=== PATIENT | female | born 1965 | race Caucasian/White ===

== ENCOUNTER → 2016-12-23 | Outpatient (CLI) | payer BC ==
--- OUTSIDE RECORDS SUMMARY | 2016-12-23 16:16 | XMS REPORT | Continuity of Care Document ---
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 If you do not see the information that you expected, contact Release of Information in the Health Information Management department at [phone] for further assistance in locating additional records.[facility] Active Allergies and Adverse Reactions No Known Allergies Current Medications Prescription Sig. Disp. Refills Start End Date Status Date oxycodone/acetaminophen Take 1-2 Tabs by mouth 30 0 03/05/20 Active (PERCOCET) 5/325 mg Every 4-6 Hours as needed 09 tablet for Pain. senna/docusate Take 1 Tab by mouth Twice 30 0 03/05/20 Active (SENOKOT-S) 8.6/50 mg Daily. 09 tablet Active Problems Problem Noted Date Hydrocephalus 03/05/2009 Social History Tobacco Use Types Packs/Day Years Used Date Never Smoker Alcohol Use Drinks/Week oz/Week Comments Yes Occasional Last Filed Vital Signs Vital Sign Reading Time Taken Blood Pressure 120/66 03/05/2009 10:31 AM CDT Pulse 63 03/05/2009 10:31 AM CDT Temperature 36.8 C (98.2 F) 03/05/2009 10:31 AM CDT Respiratory Rate - - Height 1.6 m (5' 3") 03/02/2009 5:00 PM CDT Weight 70.308 kg (155 lb) 03/02/2009 5:00 PM CDT Body Mass Index 27.46 03/02/2009 5:00 PM CDT Oxygen Saturation 100% 03/05/2009 10:31 AM CDT Plan of Care Health Maintenance Due Date Last Done Comments Physical (Comprehensive) 1974 Exam Pertussis Vaccine 1978 Tetanus Vaccine 01/19/1984 Cervical Cancer Screening 01/19/1988 Breast Cancer Screening 2007 Influenza Vaccine 06/09/2016 Results from Last 3 Months Not on file
--- NOTE | 2016-12-23 17:34 | Diagnostic Imaging Report ---
PROCEDURE: MRI lumbar spine. TECHNIQUE: Multiplanar, multisequence MRI of the lumbar spine was performed without contrast. INDICATION: Right-sided lower back pain. COMPARISON STUDY: MRI lumbar spine from December 2010. FINDINGS: The exam demonstrates no fracture or subluxation. Normal signal intensity is seen within the vertebral bodies and spinal cord. The conus medullaris ends at the top of L2. The L3-L4 level demonstrates stable mild facet arthropathy. The disc appears normal. No stenosis is present. The L4-L5 level demonstrates stable mild facet arthropathy. Minimal disc bulge is present. There is no stenosis. The L5-S1 level demonstrates a moderate-sized broad-based disc bulge with posterior radial tear. The disc bulge may be a little smaller than previously. There is some flattening of the anterior aspect of the thecal sac. IMPRESSION: Mild degenerative changes of L3-L4 and L4-L5 without stenosis. The L5-S1 level demonstrates a moderate-sized broad-based disc bulge which has slightly decreased. There is an associated posterior radial tear. Dictated by: Dictated on workstation # [id number]
== END ==
LOC: RAD 16:13
DX: M54.5 Low back pain (principal)
CPT/HCPCS: 72148

== ENCOUNTER → 2018-03-10 | Outpatient (CLI) | payer BC ==
[~2018-03-10] MED LIST: LEVO100T7 PO
--- NOTE | 2018-03-10 11:01 | Diagnostic Imaging Report ---
PROCEDURE: MRI lumbar spine. TECHNIQUE: Multiplanar, multisequence MRI of the lumbar spine was performed without contrast. INDICATION: Chronic back pain and bilateral leg pain. Comparison made with prior examination from 12/23/2016. FINDINGS: There is very slight anterolisthesis of L4 on L5. The vertebral body heights are well maintained. There is no spondylolysis. Conus medullaris is seen at L1 and is normal in appearance. The T12-L1 disc, L1-L2 disc, and L2-L3 discs are all normal in height, signal intensity, and morphology. At L3-L4, there is slight loss of disc height and signal intensity with some minimal annular bulging. There is slight effacement of the ventral thecal sac and minimal neuroforaminal encroachment. At L4-L5, there is loss of disc height and signal intensity with broad-based annular bulging. There is also some facet disease and thickening of the ligamentum flavum. There is moderate central spinal stenosis with slight encroachment upon the lateral recess bilaterally. There is moderate bilateral neuroforaminal encroachment. At L5-S1, there is some minimal annular bulging with slight effacement of the ventral thecal sac. The abdominal aorta is nonaneurysmal. The kidneys are unremarkable. IMPRESSION: Mild lower lumbar spondylosis and multilevel degenerative disc disease as detailed above. Dictated by: Dictated on workstation # [id number]
== END ==
LOC: RAD 09:50
DX: M48.061 Spinal stenosis, lumbar region without neurogenic claudication (principal); M51.36 Other intervertebral disc degeneration, lumbar region; M99.73 Connective tissue and disc stenosis of intervertebral foramina of lumbar region; M25.9 Joint disorder, unspecified; E03.9 Hypothyroidism, unspecified; I10 Essential (primary) hypertension; Z78.0 Asymptomatic menopausal state; F41.8 Other specified anxiety disorders
CPT/HCPCS: 72148

== ENCOUNTER → 2018-03-16 | Outpatient (CLI) | payer BC ==
[~2018-03-16] MED LIST changes: +GADOBUTROL 7.5 MMOL/7.5 ML (GADAVIST) VIAL IV ONE
[2018-03-16 15:44] LABS: BUN/CREATININE RATIO 41; CREATININE SERUM 0.68 MG/DL (0.60-1.30); GFR ESTIMATED > 60
--- NOTE | 2018-03-16 17:22 | Diagnostic Imaging Report ---
PROCEDURE: MR imaging cervical spine with and without contrast. TECHNIQUE: Multiplanar and multisequence MRI of the cervical spine was performed with and without contrast. INDICATION: Painful limitations in range of motion of the neck. I have no priors. FINDINGS: Cervical body heights are maintained. The alignment is anatomic. Marrow signal intensity appeared unremarkable. There was no paravertebral mass, hemorrhage or fluid collection. With IV contrast administration, there was no abnormal or suspicious cervical enhancement. No evidence for fracture, infection or neoplasm. No ligamentous injury. The craniocervical relationship appeared normal. The C1-C2, C2-C3 and C3-C4 as well as C4-C5 levels and discs were normal. C5-C6: Disc material and endplate osteophytes posteriorly flatten and efface the ventral thecal sac with a moderate degree of spinal canal stenosis and no substantial foraminal narrowing. C6-C7: Large midline broad-based disc protrusion indents the ventral thecal sac as well as indents the ventral cord surface and results in severe canal stenosis. Just posterior to the C6 vertebral body, there is a small area of left paramedian intrasubstance cord signal abnormality elevated on T2 and likely reflective of a mild focal area of myelomalacia. No cord swelling or hemorrhage. Cord below the narrowed disc space level appeared unremarkable. C7-T1: This level and disc appeared normal. The visualized upper thoracic levels normal. IMPRESSION: 1. Severe central canal stenosis owing to large broad-based disc protrusion at C6-C7 with effacement and indentation of the ventral cord and likely some slight left paramedian cord myelomalacia just above. 2. More mild spondylosis and stenosis at the C5-C6 level noted. Remaining levels normal. Dictated by: Dictated on workstation # [id number]
== END ==
LOC: RAD 15:07
DX: M48.02 Spinal stenosis, cervical region (principal); M50.223 Other cervical disc displacement at C6-C7 level; M47.812 Spondylosis without myelopathy or radiculopathy, cervical region
CPT/HCPCS: 36415; 72156; 82565; 84520

== ENCOUNTER 2018-03-28 10:15 | Outpatient (CLI) | payer BC ==
[~2018-03-28] VITALS: Ht 160 cm; Wt 77.1 kg
[2018-03-28] MEDS ORDERED: LEVO100T7 PO (10:21)
== END 2018-03-28 10:26 | disposition home or self-care (01) ==
LOC: PREOP 10:15
PROVIDERS: ATTEND Surgery
DX: Z01.818 Encounter for other preprocedural examination (principal)

== ENCOUNTER 2018-04-16 08:56 | Day surgery (SDC) | payer BC ==
--- NOTE | 2018-04-02 12:20 | History & Physicial ---
History of Present Illness History of Present Illness Reason for visit/HPI To undergo screening colonoscopy. Denies any family history of colon cancer Date of Admission 04/16/18 Date Seen by Provider: Apr 02, 2018 Time Seen by Provider: 12:18 I consulted on this patient on 04/02/18 12:18 Attending Physician Levy Oden MD Admitting Physician Doron Calix MD Consult Allergies and Home Medications Allergies Coded Allergies: No Known Drug Allergies (Unverified , 03/16/18) Home Medications Levothyroxine Sodium 100 Mcg Tablet, 100 MCG PO DAILY, (Reported) Patient Home Medication List Home Medication List Reviewed: Yes Past Fzmagvf-Oaenih-Ufzejz Hx Patient Social History Marrital Status: Employed/Student: employed Recent Foreign Travel: No Contact w/other who traveled: No Recent Hopitalizations: No Seasonal Allergies Seasonal Allergies: Yes (AT TIMES) Surgeries Yes Brain Shunt, Eye Surgery, Tubal Ligation Cardiovascular No Neurological Yes Genitourinary No Gastrointestinal No Endocrine History of Endocrine Disorders: Yes Endocrine Disorders: Hypothyroidsim HEENT History of HEENT Disorders: No Cancer No Psychosocial History of Psychiatric Problem: No Constitutional: no symptoms reported EENTM: no symptoms reported Respiratory: no symptoms reported Cardiovascular: no symptoms reported Gastrointestinal: no symptoms reported Genitourinary: no symptoms reported Skin: no symptoms reported Psychiatric/Neurological: No Symptoms Reported Physical Exam Vital Signs Capillary Refill : General Appearance: No Apparent Distress Neck: Normal Inspection Cardiovascular: Regular Rate, Rhythm Gastrointestinal: Non Tender, Soft Rectal: Deferred Extremity: Normal Inspection Neurologic/Psychiatric: Alert, Oriented x3 Skin: Warm/Dry Assessment/Plan Assessment and Plan Lady to undergo screening colonoscopy. Discussed in detail. Admission Diagnosis Admission Status: Other (Outpt Proc) LEVY ODEN MD Apr 02, 2018 12:20 pm
[~2018-04-16] VITALS: Ht 160 cm; Wt 77.1 kg
[~2018-04-16 08:56] MED LIST changes: -GADOBUTROL 7.5 MMOL/7.5 ML (GADAVIST) VIAL IV ONE
[2018-04-16] MEDS ORDERED: NS IV 500 ML 500 ML ONE (09:04)
[2018-04-16] MEDS ORDERED: NS IV 500 ML 500 ML IV PRN ×2 (09:10→11:19)
[2018-04-16 09:39] VITALS: BP 142/78
[2018-04-16] MEDS ORDERED: fentaNYL INJECTION 100 MCG/2 ML AMP ONE ×2 (10:18)
[2018-04-16] MEDS ORDERED: MIDAZOLAM 2 MG/2 ML (VERSED) VIAL ONE ×6 (10:19→10:48)
[2018-04-16] MEDS: fentaNYL INJECTION 100 MCG/2 ML AMP IVP PRN ×4 (10:28→10:47)
[2018-04-16] MEDS: MIDAZOLAM 2 MG/2 ML (VERSED) VIAL IVP PRN ×5 (10:30→10:45)
--- NOTE | 2018-04-16 11:00 | Conscious Sedation/ASA ---
Conscious Sedation Pre-Proced Time Reviewed: 09:55 ASA Class: 2 Airway Mallampati Classification: (naknek appropriate class) I. II. III, IV Lungs Heart ASA score ASA 1: a normal healthy patient ASA 2: a patient with a mild systemic disease (mid diabetes, controlled hypertension, obesity ASA 3: a patient with a severe systemic disease that limits activity (angina , COPD, prior Myocardial infarction) ASA 4: a patient with an incapacitating disease that is a constant threat to life (CHF, renal failure) ASA 5: a moribund patient not expected to survive 24 hrs. (ruptured aneurysm) ASA 6: a declared brain patient whose organs are being harvested. For emergent operations, add the letter E after the classification Grade 1 Sedation Plan: Discussed options with patient/fam Note The patient is an appropriate candidate to undergo the planned procedure, sedation, and anesthesia. The patient immediately re-assessed prior to indication. LEVY ODEN MD Apr 16, 2018 11:00 am
--- NOTE | 2018-04-16 11:02 | Endo Procedure Record ---
Endo Procedure Report Date of Procedure Last Colonoscopy: Yes Apr 16, 2018 Surgeon (s) LEVY ODEN MD Post Procedure/Op Diagnosis Very few sigmoid diverticula Procedure Performed Colonoscopy to cecum Description of Procedure Anesthesia Type: Conscious Sedation Specimen(s) collected/removed None Description of the Procedure Indication for the procedure: This lady came in for screening colonoscopy. Informed consent was obtained after reviewing the procedure in detail. Description of procedure: She was placed in left lateral decubitus position and her vital signs were monitored. Conscious sedation was achieved using Versed and fentanyl. Digital rectal examination was unremarkable. The colonoscope was then introduced into rectum and advanced all the way up to cecum. It was then withdrawn slowly and the mucosa examined in a systematic fashion. Findings: Very few sigmoid diverticula. No polyps were found She tolerated the procedure well and was taken back to the nursing area in a stable condition. Impression: Screening colonoscopy. No polyps. Family history of polyps. Recommend screening in 5 years. LEVY ODEN MD Apr 16, 2018 11:01 am
--- NOTE | 2018-04-16 11:04 | Discharge Inst-Simple/Standard ---
Discharge Inst-Standard Discharge Medications New, Converted or Re-Newed RX: Other Patient Instructions/Follow Up Plan of Care/Instructions/FU: Repeat colonoscopy in 5 years Activity as Tolerated: Yes Discharge Diet: No Restrictions LEVY ODEN MD Apr 16, 2018 11:04 am
[2018-04-16 11:30] VITALS: BP 123/68
[2018-04-16 12:00] VITALS: BP 125/74
[2018-04-16 12:58] VITALS: BP 125/74
== END 2018-04-16 12:30 | disposition home or self-care (01) ==
LOC: ENDO 08:56
PROVIDERS: ATTEND Surgery
DX: Z12.11 Encounter for screening for malignant neoplasm of colon (principal); K57.30 Diverticulosis of large intestine without perforation or abscess without bleeding; Z83.71 Family history of colonic polyps

== ENCOUNTER → 2019-01-29 | Outpatient (CLI) | payer BC ==
--- NOTE | 2019-01-29 14:15 | Diagnostic Imaging Report ---
PROCEDURE: CT abdomen and pelvis without contrast. TECHNIQUE: Multiple contiguous axial images were obtained through the abdomen and pelvis without the use of intravenous contrast. Auto Exposure Controls were utilized during the CT exam to meet ALARA standards for radiation dose reduction. INDICATION: Hematuria. COMPARISON: No prior studies are available for comparison. FINDINGS: Lung bases are clear of acute infiltrates. Calcified granuloma in the left lower lobe is seen. No focal liver mass is identified. The gallbladder is unremarkable. No biliary duct dilatation is seen. Pancreas and spleen are unremarkable. No adrenal mass is detected. No definite renal calculi are detected. No ureteral or bladder calculi are detected. There is no hydronephrosis. Aorta is nonaneurysmal. Small and large bowel loops appear to be nonobstructed. There is moderate stool throughout the colon. There appears to be shunt tubing passing into the abdomen and pelvis. No free fluid or fluid collection is identified. There is no free air. Uterus is unremarkable. No abdominal or pelvic lymphadenopathy is seen. IMPRESSION: No evidence of urinary tract calculi, obstruction or hydronephrosis. No acute feature in the abdomen or pelvis is seen. There is moderate stool noted within the colon. Dictated by: Dictated on workstation # [id number]
== END ==
LOC: RAD 13:15
PROVIDERS: ATTEND Urology
DX: R31.9 Hematuria, unspecified (principal)
CPT/HCPCS: 74176

== ENCOUNTER → 2019-03-05 | Outpatient (CLI) | payer BC ==
--- NOTE | 2019-03-05 10:04 | Diagnostic Imaging Report ---
INDICATION: Dyspepsia. TECHNIQUE: Multiple grayscale sonographic images were obtained of the right upper quadrant of the abdomen. CORRELATION STUDY: None FINDINGS: LIVER: There is uniform echotexture within the visualized portions of the liver. There is normal, hepatopedal direction of flow within the main portal vein. Liver length 13 cm. GALLBLADDER: The gallbladder demonstrates no definitive shadowing gallstones. No abnormal gallbladder wall thickening or pericholecystic fluid. COMMON BILE DUCT: Nondilated at 3 mm. PANCREAS: Visualized portions appearing unremarkable. RIGHT KIDNEY: Measures 11.9 x 5.4 x 4.1 cm. No hydronephrosis. AORTA/IVC: Not well visualized. OTHER: None. IMPRESSION: 1. Negative appearing right upper quadrant abdominal ultrasound. Dictated by: Dictated on workstation # [id number]
== END ==
LOC: RAD 08:20
PROVIDERS: ATTEND Emergency Medicine
DX: E87.70 Fluid overload, unspecified (principal); K30 Functional dyspepsia; R14.0 Abdominal distension (gaseous)
CPT/HCPCS: 36415; 76705; 82232; 82784

== ENCOUNTER → 2019-08-02 | Outpatient (CLI) | payer BC ==
--- NOTE | 2019-08-02 15:42 | Diagnostic Imaging Report ---
EXAMINATION: Cervical spine at 3:16 p.m. INDICATION: Neck pain. AP, lateral, and odontoid views were obtained. FINDINGS: The lateral view shows the vertebral body heights and alignment to be generally within normal limits and similar to the MRI cervical spine exam of 03/16/2018. The intervertebral spaces are fairly well maintained. There is no fracture or acute bony abnormality evident. There is no sign of retropharyngeal edema. The lung apices are clear. The ventriculoperitoneal shunt on the right seen previously is again evident. IMPRESSION: 1. There is no evidence for an acute bony abnormality. 2. The previous MRI exam of 03/16/2018 did show severe central canal stenosis at C6-C7 and mild stenosis at C5-C6. If there is clinical concern that these areas of stenosis have worsened since the prior study, then repeat MRI exam would be recommended. Dictated by: Dictated on workstation # [id number]
--- NOTE | 2019-08-02 17:08 | Diagnostic Imaging Report ---
EXAMINATION: Lumbar spine at 3:18 p.m. INDICATION: Back pain. FINDINGS: The lateral view shows slight anterior translation of L4 with respect to L5 and mild narrowing of the disc space at L4-L5. These findings are similar to the CT abdomen/pelvis exam of 01/29/2019. The alignment of the other vertebral bodies is within normal limits. There is also mild narrowing of the disc space at L5-S1. The other intervertebral spaces are well maintained. There is no fracture or acute bony abnormality identified. There is no sign of a paraspinal mass. The ventriculoperitoneal shunt seen previously is again evident. There is mild symmetrical sclerosis of the sacroiliac joints. IMPRESSION: 1. There is no evidence for an acute bony abnormality. 2. The mild degenerative disc and bony disease at L4-L5 and L5-S1 seen previously does not appear to have progressed. 3. If there is clinical concern regarding spinal stenosis or nerve root encroachment and further imaging is desired, then MRI would be recommended. Dictated by: Dictated on workstation # [id number]
--- NOTE | 2019-08-02 19:31 | Diagnostic Imaging Report ---
EXAMINATION: Magnetic resonance imaging of the right shoulder without contrast. DATE: August 02, 2019. COMPARISON: None. HISTORY: 54-year-old female, right shoulder pain. TECHNIQUE: Magnetic Resonance Imaging sequences were performed of the shoulder without contrast. FINDINGS: ROTATOR CUFF, LIGAMENTS, TENDONS, AND MUSCLES: The supraspinatus, infraspinatus, teres minor, and subscapularis tendons and muscles are intact. There is normal rotator cuff muscle bulk and signal. LONG HEAD OF BICEPS: The biceps labral attachment and long head of the biceps tendon is intact. The long head of the biceps tendon is normally positioned within the bicipital groove. GLENOHUMERAL JOINT: The humeral head is well positioned relative to the glenoid. The labrum is grossly intact. There is no convincing paralabral cyst. There is a questionable tiny paralabral cyst adjacent to the anterior inferior labrum. This also may relate to a vessel. The articular cartilage is grossly intact. There is no joint effusion. ACROMIOCLAVICULAR JOINT: The acromioclavicular joint is normally aligned. The coracoclavicular and coracoacromial ligaments are intact. There are mild acromioclavicular degenerative changes without large undersurface osteophyte. BONE: The bones all have normal configuration. There is no acute fracture, bone contusion or evidence of osteonecrosis. BURSAE AND SOFT TISSUES: The bursae and soft tissue surrounding the shoulder are unremarkable. IMPRESSION: 1. Intact rotator cuff. 2. Mild acromioclavicular degenerative changes without undersurface osteophyte. 3. No discretely identified labral tear. There is a questionable paralabral cyst adjacent to the anterior-inferior labrum which is thought more likely to relate to a prominent vessel. Additional glenohumeral joint assessment is unremarkable. 4. No acute fracture, bone contusion or evidence of osteonecrosis. Dictated by: Dictated on workstation # [id number]
== END ==
LOC: RAD 14:57
PROVIDERS: ATTEND Emergency Medicine
DX: M19.011 Primary osteoarthritis, right shoulder (principal); M48.02 Spinal stenosis, cervical region; M51.37 Other intervertebral disc degeneration, lumbosacral region
CPT/HCPCS: 72040; 72100; 73221

== ENCOUNTER → 2019-09-27 | Outpatient (CLI) | payer BC ==
--- NOTE | 2019-09-27 15:31 | Diagnostic Imaging Report ---
PROCEDURE: MR imaging cervical spine without contrast. TECHNIQUE: Multiplanar, multisequence MR imaging of the cervical spine was performed without contrast. INDICATION: Neck pain and right shoulder pain. COMPARISON: Correlation is made with prior MRI of the cervical spine from 03/16/2018. FINDINGS: Curvature and alignment of the cervical spine is normal. The vertebral body marrow signal is normal. No geographic marrow lesion is detected. Disc heights are fairly well-maintained. There is some generalized desiccation, similar to prior exam. Previously noted area of a left para-midline focal cord signal at C6 level appears similar to prior exam and again is most suggestive of an area of myelomalacia. No other new areas of cord signal abnormality are seen. Craniocervical junction is unremarkable. C2-C3: No central canal or neural foraminal stenosis is identified. C3-C4: No central canal or neural foraminal stenosis is identified. C4-C5: No central canal or neural foraminal stenosis is identified. C5-C6: Broad-based disc/osteophyte complex indents the ventral thecal sac and produces mild narrowing of the canal. There does appear to be some [id number] narrowing of the right neural foramen. Left neural foramen is patent. C6-C7: Broad-based disc/osteophyte complex continues to indent the ventral thecal sac as well as the ventral surface of the spinal cord, similar to prior exam. This does produce significant narrowing of the canal. There appears to be moderate neural foraminal stenosis as well, similar to prior exam. C7-T1: No significant central canal or neural foraminal narrowing is seen. Paraspinous tissues are unremarkable. IMPRESSION: Overall very similar appearance to the cervical spine when compared with prior study from 03/16/2018. Broad-based disc/osteophyte complex resulting in moderate central canal stenosis C6-C7 level is again noted. There is moderate neural foraminal stenosis bilaterally at this level as well. Area of focal cord signal at the C6 level is unchanged and most suggestive of focal myelomalacia. Dictated by: Dictated on workstation # [id number]
--- NOTE | 2019-09-27 15:41 | Diagnostic Imaging Report ---
PROCEDURE: MRI lumbar spine. TECHNIQUE: Multiplanar, multisequence MRI of the lumbar spine was performed without contrast. INDICATION: Low back pain. COMPARISON: Correlation is made with prior MRI of the lumbar spine performed 03/10/2018. FINDINGS: Curvature of the lumbar spine is normal. Minimal anterolisthesis of L4 on L5 is similar to prior exam. Vertebral body heights are maintained. The marrow signal intensity is normal. No geographic marrow lesion or acute compression fracture is identified. There is some loss of height and signal intensity involving the L3-L4, L4-L5, and L5-S1 discs compatible with degenerative disc disease. The conus is unremarkable at the L1-L2 level. T12-L1: No central canal or neural foraminal stenosis is identified. L1-L2: No central canal or neural foraminal stenosis is identified. L2-L3: No central canal or neural foraminal stenosis is identified. L3-L4: Minimal annular bulging flattens the ventral thecal sac, but the central canal remains patent. No significant neural foraminal narrowing is seen. There may be very mild neural foraminal narrowing bilaterally. L4-L5: There are significant hypertrophic facet changes and ligamentous thickening as well as broad-based disc/osteophyte complex. This does result in moderate narrowing of the central canal. There is also moderate narrowing of bilateral lateral recesses and mild bilateral neural foraminal narrowing. Overall appearance is similar to prior exam. L5-S1: Broad-based disc bulging indenting the ventral thecal sac is noted, similar to prior exam. No central canal stenosis is seen. Neural foramina are widely patent. Paraspinous tissues are unremarkable. IMPRESSION: Lower lumbar spondylosis, greatest at the L4-L5 level where there is significant hypertrophic facet changes as well as moderate central canal and lateral recess stenosis, described above. Overall appearance is very similar to prior MRI of the lumbar spine from 03/10/2018. No acute compression fracture is detected. Dictated by: Dictated on workstation # [id number]
== END ==
LOC: RAD 14:32
PROVIDERS: ATTEND Emergency Medicine
DX: M47.816 Spondylosis without myelopathy or radiculopathy, lumbar region (principal); M48.061 Spinal stenosis, lumbar region without neurogenic claudication; M48.02 Spinal stenosis, cervical region
CPT/HCPCS: 72141; 72148

== ENCOUNTER → 2019-12-05 | Outpatient (CLI) | payer BC ==
[2019-12-05 12:05] LABS: BUN/CREATININE RATIO 28; CALCIUM 9.8 MG/DL (8.5-10.1); CARBON DIOXIDE 27 MMOL/L (21-32); CHLORIDE 105 MMOL/L (98-107); CREATININE SERUM 0.87 MG/DL (0.60-1.30); GFR ESTIMATED > 60; GLUCOSE 92 MG/DL (70-105); POTASSIUM 3.5 MMOL/L (3.6-5.0); SODIUM 141 MMOL/L (135-145)
[2019-12-05 12:27] LABS: FREE T4 (FREE THYROXINE) 1.06 NG/DL (0.70-1.48)
--- NOTE | 2019-12-05 12:40 | Diagnostic Imaging Report ---
PROCEDURE: US Thyroid. TECHNIQUE: Multiple real-time grayscale images were obtained of the thyroid in various projections. INDICATION: Jackie's thyroiditis COMPARISON: None available. FINDINGS: Right thyroid lobe: The right thyroid lobe measures 5.9 x 1.9 x 2.1 cm. The background of the thyroid is fairly homogeneous echogenicity. There is a solid, isoechoic nodule in the lower pole with ill-defined margins measuring 2.1 x 1.5 x 1.1 cm. Isthmus: The thyroid isthmus measures 0.3 cm in thickness. There is a solid, hypoechoic nodule that is wider than tall measuring 1.3 x 0.4 x 0.9 cm. The margins are well-circumscribed and there are no echogenic foci. Left thyroid lobe: The left thyroid lobe measures 5.6 x 1.6 x 1.5 cm. The left thyroid lobe is heterogeneous in appearance without discrete nodule. IMPRESSION: 1. There are a few solid thyroid nodules in the right lower lobe and isthmus. The largest measures 2.1 cm and is mildly suspicious. Based on size, recommend followup thyroid ultrasound in one year to assess stability. If the nodule stable at that time, follow-up imaging at 3 and 5 years would be suggested. ACR TI-RADS: TR3 (3). TI-RADS Recommendations:TR3 - Mildly Suspicious. FNA if > 2.5 cm. Follow if > 1.5 cm. Dictated by: Dictated on workstation # [id number]
== END ==
LOC: RAD 11:12
PROVIDERS: ATTEND Internal Medicine Endocrinology, Diabetes & Metabolism
DX: E04.1 Nontoxic single thyroid nodule (principal); E83.52 Hypercalcemia; E06.3 Autoimmune thyroiditis
CPT/HCPCS: 36415; 76536; 80048; 84439; 84443; 84480

== ENCOUNTER → 2020-02-26 | Outpatient (CLI) | payer BC ==
[2020-02-26 16:14] LABS: CHLORIDE 108 MMOL/L (98-107); SODIUM 140 MMOL/L (135-145)
[2020-02-26 16:15] LABS: CALCIUM 9.9 MG/DL (8.5-10.1); GLUCOSE 91 MG/DL (70-105)
[2020-02-26 16:17] LABS: CARBON DIOXIDE 24 MMOL/L (21-32)
[2020-02-26 16:19] LABS: CREATININE SERUM 0.76 MG/DL (0.60-1.30); GFR ESTIMATED > 60
[2020-02-26 16:20] LABS: BUN/CREATININE RATIO 34
== END ==
LOC: LAB 15:30
PROVIDERS: ATTEND Internal Medicine Endocrinology, Diabetes & Metabolism
DX: E83.52 Hypercalcemia (principal)
CPT/HCPCS: 36415; 80048

== ENCOUNTER → 2020-04-14 | Outpatient (CLI) | payer BC ==
[2020-04-14 12:08] LABS: FREE T4 (FREE THYROXINE) 1.14 NG/DL (0.70-1.48)
== END ==
LOC: LAB 11:08
PROVIDERS: ATTEND Internal Medicine Endocrinology, Diabetes & Metabolism
DX: E06.3 Autoimmune thyroiditis (principal)
CPT/HCPCS: 36415; 84439; 84443; 84480

== ENCOUNTER → 2020-06-30 | Outpatient (CLI) | payer BC ==
--- NOTE | 2020-06-30 18:11 | Diagnostic Imaging Report ---
INDICATION: Low back pain and radiculopathy. TIME OF EXAM: 05:27 p.m. FINDINGS: Frontal and lateral views of the lumbar spine were obtained. Curvature is normal. There is a grade 1 spondylolisthesis of L4 on L5. Vertebral body heights are maintained. No acute compression fracture is identified. There is lower lumbar facet arthropathy. IMPRESSION: L4-L5 spondylolisthesis. No other significant abnormality is detected. Dictated by: Dictated on workstation # [id number]
== END ==
LOC: RAD 17:14
PROVIDERS: ATTEND Emergency Medicine
DX: M47.26 Other spondylosis with radiculopathy, lumbar region (principal)
CPT/HCPCS: 72100

== ENCOUNTER → 2020-07-14 | Outpatient (CLI) | payer BC ==
--- NOTE | 2020-07-14 13:47 | Diagnostic Imaging Report ---
PROCEDURE: MRI lumbar spine. TECHNIQUE: Multiplanar, multisequence MRI of the lumbar spine was performed without contrast. INDICATION: Back pain. COMPARED: 09/27/2019. Slight grade 1 anterolisthesis L4 on L5 of 1 to 2 mm unchanged, the remaining levels are aligned normally. Lumbar statures are normal. The conus appeared normal. The nerves of the cauda equina showed normal dispersal. No paravertebral mass, hemorrhage or fluid collection. At the L4-L5 level there is some mild endplate osteophytes and disc bulge posteriorly, findings result in moderate degrees of biforaminal and left greater than right lateral recess impingement. There is stable mild canal stenosis. At L3-L4 there is disc desiccation, stature loss and slight circumferential bulge but no focal herniation and no resultant stenosis. At L5-S1 there is disc desiccation without displacement or stenosis. The remaining levels unremarkable. IMPRESSION: Degenerative changes are believed to account for stable listhesis L4-L5 with some increased biforaminal stenosis, remaining levels unchanged. No acute-appearing abnormality. Dictated by: Dictated on workstation # [id number]
== END ==
LOC: RAD 12:37
PROVIDERS: ATTEND Emergency Medicine
DX: M47.26 Other spondylosis with radiculopathy, lumbar region (principal); M43.16 Spondylolisthesis, lumbar region
CPT/HCPCS: 72148

== ENCOUNTER → 2020-07-24 | Outpatient (CLI) | payer BC ==
--- NOTE | 2020-07-24 14:24 | Diagnostic Imaging Report ---
Clinical indications: Patient with neck pain, right shoulder pain which radiates down and arm. No prior surgery. Exam: MRI of the cervical spine performed without IV contrast. Sequences include sagittal T1, sagittal T2, sagittal stir, and T2. Comparison: MRI of the cervical spine without contrast dated 09/27/2019. Findings: There is no acute cervical spine fracture or dislocation. There is no abnormal cervical vertebral body signal. Limited visualization of posterior fossa shows no significant antibody. There is significant encroachment upon the cervical cord, with significant cord deformity, seen at the C6-C7 level due to disk disease. There is slight progression of a small amount of increased intramedullary T2 signal involving the cervical cord are seen at the C6-C7 level. This may be related to cord contusion or myelomalacia. C1-C2: There are degenerative spurs involving the atlantoodontoid interval anteriorly. There is no significant central canal narrowing. C2-C3: There is stable minimal ligament flavum buckling. There is mild to moderate bilateral facet arthropathy again seen. There is mild central canal narrowing. There is no significant neural foramen narrowing. C3-C4: Stable mild bilateral facet arthropathy. There is no significant central spinal canal or neural foramen narrowing. C4-C5: Stable mild to moderate bilateral facet arthropathy. Stable mild left neural foramen narrowing. There is no significant right neural foramen narrowing or central canal narrowing. C5-C6: Again seen diffuse disk bulge which is not significantly changed in interim. Stable right uncinate spurs with at least moderate right neural foramen narrowing. There is no significant left neural foramen narrowing. There is mild central canal stenosis. C6-C7: Again seen diffuse disk bulge with superimposed broad posterior disk protrusion/herniation. There is mild ligament flavum buckling and facet arthropathy. There is severe central canal stenosis with localized cord deformity. There is again seen moderate to severe bilateral neural foramen narrowing. C7-T1: Unremarkable. IMPRESSION: 1: Stable C6-C7 posterior disk herniation, ligamentum flavum buckling and facet arthropathy. There is associated severe central canal stenosis with cord deformity. There is slight increased T2 cord signal seen at C5 and C6 level which may be related to myelomalacia or cord contusion. There is stable moderate to severe bilateral C6-C7 neural foramen narrowing. 2: There is stable C5-C6 diffuse disk bulge with right uncinate spurs causing moderate right neural foramen narrowing. There is mild central canal narrowing. 3: The remainder of the cervical spine degenerative disease as described above. Dictated by: Dictated on workstation # [id number]
--- NOTE | 2020-07-24 15:02 | Diagnostic Imaging Report ---
EXAMINATION: Magnetic resonance imaging of the shoulder without contrast. DATE: July 24, 2020. COMPARISON: MRI right shoulder August 02, 2019. HISTORY: 55-year-old female, right shoulder pain. TECHNIQUE: Magnetic Resonance Imaging sequences were performed of the shoulder without contrast. FINDINGS: ROTATOR CUFF, LIGAMENTS, TENDONS, AND MUSCLES: The supraspinatus, infraspinatus, teres minor, and subscapularis tendons and muscles are intact. There is normal rotator cuff muscle bulk and signal. LONG HEAD OF BICEPS: The biceps labral attachment and long head of the biceps tendon is intact. The long head of the biceps tendon is normally positioned within the bicipital groove. GLENOHUMERAL JOINT: The humeral head is well positioned relative to the glenoid. The labrum is grossly intact. There is no identified paralabral cyst. The articular cartilage is grossly intact. There is no joint effusion. ACROMIOCLAVICULAR JOINT: The acromioclavicular joint is normally aligned. The coracoclavicular and coracoacromial ligaments are intact. There are very mild acromioclavicular degenerative changes without undersurface osteophyte. BONE: The bones all have normal configuration. The bone marrow signal is within normal limits. Specifically, negative for fracture, osteomyelitis, osteonecrosis, or marrow replacing process. BURSAE AND SOFT TISSUES: The bursae and soft tissue surrounding the shoulder are unremarkable. IMPRESSION: 1. Intact rotator cuff and proximal long head of biceps tendon. 2. Very mild acromioclavicular degenerative changes without undersurface osteophyte. 3. Grossly intact labrum and unremarkable additional glenohumeral joint evaluation. 4. No acute fracture, bone contusion or evidence of osteonecrosis. Dictated by: Dictated on workstation # [id number]
== END ==
LOC: RAD 12:22
PROVIDERS: ATTEND Emergency Medicine
DX: M47.22 Other spondylosis with radiculopathy, cervical region (principal); M48.02 Spinal stenosis, cervical region; M19.011 Primary osteoarthritis, right shoulder; M50.222 Other cervical disc displacement at C5-C6 level
CPT/HCPCS: 72141; 73221

== ENCOUNTER → 2020-08-11 | Outpatient (CLI) | payer BC ==
--- NOTE | 2020-08-11 16:23 | Diagnostic Imaging Report ---
PROCEDURE: US Thyroid. TECHNIQUE: Multiple real-time grayscale images were obtained of the thyroid in various projections. INDICATION: Multinodular goiter. COMPARISON: Correlation is made with prior thyroid ultrasound from 12/05/2019. FINDINGS: The right lobe of the thyroid measures 6.0 x 1.6 x 1.9 cm and the left lobe measures 5.4 x 1.7 x 1.3 cm. Isthmus is 4 mm in thickness. Left lobe demonstrates some parenchymal heterogeneity and occasional calcifications but no discrete mass is identified. There are two nodules within the right lobe. Mixed solid and cystic nodule in mid right lobe measures 1.3 x 0.9 x 1.1 cm compared with 1.4 x 0.9 x 1.1 cm on prior. Mixed solid and cystic nodule in lower pole of right lobe measures 1.9 x 1.3 x 1.3 cm compared with 2.1 x 1.5 x 1.1 cm on prior. Previously noted isthmus nodules are not well-visualized today. IMPRESSION: Stable right lobe thyroid nodules when compared with prior exam from 12/05/2019. No new thyroid mass is detected. Dictated by: Dictated on workstation # [id number]
== END ==
LOC: RAD 15:17
PROVIDERS: ATTEND Internal Medicine Endocrinology, Diabetes & Metabolism
DX: E04.2 Nontoxic multinodular goiter (principal)
CPT/HCPCS: 76536

== ENCOUNTER 2023-02-22 05:50 | Outpatient (CLI) | payer BC, OTHER ==
[~2023-02-22] VITALS: Ht 160 cm; Wt 77.3 kg
[2023-02-22] MEDS ORDERED: LACTATED RINGERS 1,000 ML IV STA (10:14)
[2023-02-22] MEDS ORDERED: LIDOCAINE JELLY 2% 6 ML SYRINGE MM PRN (10:15)
== END 2023-02-22 10:17 ==
LOC: PREOP 05:50
PROVIDERS: ATTEND Surgery
DX: Z01.818 Encounter for other preprocedural examination (principal); Z12.11 Encounter for screening for malignant neoplasm of colon

== ENCOUNTER 2023-03-01 13:15 | Day surgery (SDC) | payer OTHER ==
[~2023-03-01] VITALS: Ht 160 cm; Wt 77.3 kg
--- NOTE | 2023-03-01 13:40 | Progress Note-Pre Operative ---
Pre-Operative Progress Note Date of Available H&P: March 01, 2023 Date H&P Reviewed: March 01, 2023 Time H&P Reviewed: 13:00 History & Physical: No changes noted Pre-Operative Diagnosis: screening with family hx of breast cancers PARKER JACK MD March 01, 2023 13:40
[2023-03-01] MEDS ORDERED: LACTATED RINGERS 1,000 ML IV STA (13:41)
--- NOTE | 2023-03-01 13:41 | Discharge Inst-Surgical ---
D/C Lap Instructions-GUERO Follow Up Activity as tolerated High Fiber Diet 25g or more per day Avoid Alcohol, Caffeine, Spicy [place] and Acid foods. Drink 64 fluid oz or more of fluids per day. Symptoms to Report: Fever over 101 degree F, Nausea/Vomiting If any problems/questions: Contact your physician or go to Emergency Room PARKER JACK MD March 01, 2023 13:41
[2023-03-01] MEDS ORDERED: ONDANSETRON 4 MG/2 ML (SDV) Z0FRAN IVP PRN (13:45)
[2023-03-01] MEDS ORDERED: LIDOCAINE JELLY 2% 6 ML SYRINGE MM PRN (13:45)
[2023-03-01] MEDS ORDERED: ONDANSETRON 4 MG (ZOFRAN) ORAL DISSOLVE TAB PO PRN (13:45)
[2023-03-01 13:50] VITALS: BP 162/94
[2023-03-01] MEDS ORDERED: LACTATED RINGERS 1,000 ML IV ONE (13:50)
[2023-03-01] MEDS ORDERED: PROPOFOL INJECTION 50 ML IV ONE (16:30)
[2023-03-01] MEDS ORDERED: MIDAZOLAM 2 MG/2 ML (VERSED) VIAL ONE (16:30)
[2023-03-01] MEDS ORDERED: LIDOCAINE JELLY 2% 6 ML SYRINGE ONE (16:40)
[2023-03-01 17:05] VITALS: BP 179/90
[2023-03-01 17:10] VITALS: BP 184/88
[2023-03-01 17:40] VITALS: BP 184/88
--- NOTE | 2023-03-01 17:53 | Anesthesia-General Post-Op ---
MAC Patient Condition Mental Status/LOC: Same as Preop Cardiovascular: Satisfactory Nausea/Vomiting: Absent Respiratory: Satisfactory Pain: Controlled Complications: Absent Post Op Complications Complications None Follow Up Care/Instructions Patient Instructions None needed. Anesthesiology Discharge Order Discharge Order Patient is doing well, no complaints, stable vital signs, no apparent adverse anesthesia problems. No complications reported per nursing. SHAWN HEAD CRNA March 01, 2023 17:53
--- NOTE | 2023-03-02 01:02 | OPERATIVE REPORT ---
DATE OF SERVICE: 03/01/2023 ATTENDING PRIMARY GENERAL PURCHASING AGENT: LEE Ward PREOPERATIVE DIAGNOSIS: Screening colonoscopy with family history of cancers. POSTOPERATIVE DIAGNOSES: Chronic stage II external and internal hemorrhoids. Normal colon and rectum. PROCEDURE: Colonoscopy. SURGEON: Parker Vaughn MD ANESTHESIA: Monitored anesthesia care. ESTIMATED BLOOD LOSS: Minimal. FINDINGS: Chronic stage II external and internal hemorrhoids. Normal colon and rectum. DISPOSITION: The patient tolerated the procedure well. INDICATIONS: The patient is a 58-year-old female in need of a screening colonoscopy. She reports that her last colonoscopy was 5 years ago and mild sigmoid diverticulosis; however, no other lesions identified. She states that she does not have any major issues with diarrhea, nor constipation as well as no red blood per rectum, no dark tarry stools. She does have a strong family history of other types of cancers including 2 paternal half-sisters with breast cancer diagnosed in the 50s as well as a maternal grandmother with ovarian cancer. Due to the strong family history of cancers in general, she decided to proceed with screening colonoscopies every 5 years. DESCRIPTION OF PROCEDURE: The patient was brought to the endoscopy suite and laid in the left lateral decubitus position. After adequate IV pain and sedative medications and monitored anesthesia care, a digital rectal examination was performed. Mild chronic stage II external and internal hemorrhoids were identified, which were not actively edematous nor inflamed and no bleeding. Normal sphincter tone was felt and there were no palpable masses. The endoscope was then intubated into the anus, rectum gently insufflated. The endoscope was then advanced through the valves of Reis of the rectum with no polyps or any neoplasms identified. Through the sigmoid colon, there may have been some small pockets that may have indicated some mild sigmoid diverticulosis; however, this was very, very mild. The endoscope was then advanced through the remainder of the descending, transverse and ascending colon to the cecum, which were normal. There were no polyps or any neoplasms identified throughout the colon or rectum. The endoscope was then slowly withdrawn while taking a second look and suctioning of residual air with no additional findings. The patient tolerated the procedure well. We will have her continue with medical management with a high-fiber diet with a fiber supplement, which equal or exceed 25 grams daily as well as significant amounts of water to promote soft consistency stools on a daily basis. If she is asymptomatic, she may wait 5 years for her next colonoscopy. This is based on her family history of other types of cancers, which may indicate possibility of HNPCC or Villalba syndrome. She, however, does not have any first-degree family history of colon cancer. We will leave the decision up to her as to the time interval between screening colonoscopies. Job ID: [id number] DocumentID: [id number] Dictated Date: 03/01/2023 17:14:46 Manager Enterprise [employer] Management Date: 03/01/2023 23:44:00 Dictated By: PARKER VAUGHN MD [facility]
== END 2023-03-01 17:40 | disposition home or self-care (01) ==
LOC: ENDO 13:15
PROVIDERS: ATTEND Surgery
DX: Z12.11 Encounter for screening for malignant neoplasm of colon (principal); K64.1 Second degree hemorrhoids; K64.4 Residual hemorrhoidal skin tags; Z80.3 Family history of malignant neoplasm of breast; Z80.41 Family history of malignant neoplasm of ovary; Z83.71 Family history of colonic polyps